=== PATIENT | male | born 1950 | race Caucasian/White ===

== ENCOUNTER 2022-12-03 08:24 | Day surgery (SDC) | payer MEDICARE ==
[~2022-12-03] VITALS: Ht 165.1 cm; Wt 76.9 kg
[~2022-12-03 08:24] MED LIST: NS 1,000 ML IV ONE
[2022-12-03] MEDS ORDERED: propofoL 200 MG/20 ML VIAL As Ordered ONE ×2 (09:11→09:17)
[2022-12-03] MEDS ORDERED: PHENYLephrine 500MCG 5ML (100MCG/ML) SYRINGE As Ordered ONE (09:27)
[2022-12-03 09:38] VITALS: TEMP 96.8
[2022-12-03 10:00] VITALS: BP 123/82; O2SAT 96
== END 2022-12-03 10:12 | disposition home or self-care (01) ==
LOC: M OPP 08:24
PROVIDERS: ATTEND Surgery
DX: Z12.11 Encounter for screening for malignant neoplasm of colon (principal); D12.0 Benign neoplasm of cecum; K64.1 Second degree hemorrhoids
CPT/HCPCS: 45380; 88305; J2370